=== PATIENT | female | born 1995 | race Caucasian/White ===

== ENCOUNTER 2024-01-25 18:54 | Emergency (ER) | payer OTHER, SELFPAY ==
--- NOTE | ~2024-01-25 | XR_ITS ---
XR chest 1V portable DATE: 01/25/2024 19:43 INDICATION: Postoperative fever TECHNIQUE: Portable AP chest on 01/25/2024 at 1939 hours COMPARISON: None FINDINGS: Normal heart size. There is minimal atelectasis at the lung bases. Otherwise no pulmonary consolidation, pulmonary vasc ular congestion or pleural effusion or pneumothorax. IMPRESSION: Minimal atelectasis at the lung bases Reviewed, dictated and finalized at [facility].
--- NOTE | ~2024-01-25 | CT_ITS ---
EXAMINATION: CT abdomen pelvis w con DATE: 01/25/2024 20:49 INDICATION: Fever 2 days postoperative from robotic umbilical hernia repair TECHNIQUE: Computed tomography (CT) of the abdomen and pelvis was performed with 100 CC Omnipaque 350 intravenous contrast. Automated exposure control and iterative reconstruction technique were employe d. Exam dose: 365.63 mGy-cm total exam DLP. COMPARISON: 01/25/2024 portable AP chest FINDINGS: Prominent discoid atelectasis is noted in both lung bases, involving the lower lobes, likel y due to postoperative splinting. This may be a cause for postoperative fever. There is prominent subcutaneous emphysema of the anterior and anterolateral abdominal wall bilaterall y and subcutaneous emphysema within the abdominal wall musculature bilaterally, in addition to modera te intraperitoneal free air. There is some soft tissue infiltration of the adipose tissue of the anterior abdominal wall, particul sam in the periumbilical area and anterolateral left abdominal wall. There is also soft tissue infil tration of the omental fat. Contracted gallbladder with multiple gallstones. The liver, spleen, pancreas, and adrenal glands are unremarkable. No bile duct or pancreatic duct dil atation. Scattered renal cysts measuring up to 11 mm on the right, 4 mm on the left. No urinary tract calculus or hydroureteronephrosis 2.5 cm peripherally enhancing right corpus luteum ovarian cyst. The uterus and adnexal areas are othe rwise unremarkable. Normal caliber of the abdominal aorta. No intraperitoneal or retroperitoneal or pelvic mass lesion or adenopathy. Conclusion skeletal structures are unremarkable. IMPRESSION: Prominent bilateral lower lobe basilar discoid atelectasis, likely due to splinting from pain. This may be a cause of fever. Cholelithiasis Scattered renal cysts 2.5 cm peripherally enhancing right ovarian corpus and cyst Postoperative changes of the abdominal wall and abdomen, including subcutaneous emphysema and fat str anding, emphysema of the abdominal wall musculature and intraperitoneal free air Reviewed, dictated and finalized at [facility]. Reviewed, dictated and finalized at location [facility]. IMPRESSION: Prominent bilateral lower lobe basilar discoid atelectasis, likely due to splinting from pain. This may be a cause of fever. Cholelithiasis Scattered renal cysts 2.5 cm peripherally enhancing right ovarian corpus and cyst Postoperative changes of the abdominal wall and abdomen, including subcutaneous emphysema and fat stranding, emphysema of the abdominal wall musculature and i ntraperitoneal free air
[2024-01-25 19:10] VITALS: BP 142/90; PULSE 81; RESP 16; TEMP 37; O2SAT 98
[2024-01-25 19:25] VITALS: BP 139/61; PULSE 98; RESP 22; O2SAT 95
--- NOTE | 2024-01-25 19:32 | ECG_ITS ---
SEE SCANNED COPY FOR CONFIRMED REPORT. MTDD
--- NOTE | 2024-01-25 19:34 | ED.GENADULT ---
HPI - General Adult General Chief complaint: Recheck/Abnormal Lab/Rx Stated complaint: post op fever Time Seen by Provider: 01/25/24 19:22 History of Present Illness HPI narrative: This is a 28-year-old female in pod 2 from a robotic umbilical hernia repair performed at [facility] since the surgery the patient has not had a bowel movement. She stopped passing gas. She had 2 episodes of vomiting yesterday. She took a temperature [facility] skin probing had a fever of 102 earlier today. She has been using oxycodone intermittently for pain. She has taken 1 Motrin. Patient denies chest pain difficulty breathing or urinary symptoms. Abdomen is tender Related Data Allergies Allergy/AdvReac Type Severity Reaction Status Date / Time No Known Allergies Allergy Verified 01/25/24 21:06 [facility] Past Medical History Medical History High cholesterol Exam Narrative: APPEARANCE: No apparent distress. Head: atraumatic. EYES: EOMI, NOSE: Atraumatic NECK: Trachea midline RESPIRATORY: No increased rate of breathing, clear to auscultation CARDIOVASCULAR: RRR, ABDOMINAL: several well-healed surgical incisions sites with minimal bruising. No cellulitic changes. Abdomen is soft with mild diffuse tenderness. No CVA tenderness MUSCULOSKELETAl: No obvious deformities NEURO: Alert. Moving 4/4 extremities SKIN:: Warm, dry. Normal color PSYCHIATRIC: Normal affect Course Vital Signs Vital signs: Vital Signs Temperature 98.6 F 01/25/24 19:10 Pulse Rate 81 01/25/24 19:10 Respiratory Rate 16 01/25/24 19:10 Blood Pressure 142/90 H 01/25/24 19:10 Pulse Oximetry 98 01/25/24 19:10 Oxygen Delivery Room Air 01/25/24 19:10 Temperature 98.6 F 01/25/24 19:10 Pulse Rate 81 01/25/24 21:04 Respiratory Rate 17 01/25/24 21:04 Blood Pressure 129/95 H 01/25/24 21:04 Pulse Oximetry 95 01/25/24 21:04 Oxygen Delivery Room Air 01/25/24 19:25 Medical Decision Making MDM Narrative Medical decision making narrative: -Course: 20-year-old female presenting on pod 2 robotic umbilical hernia repair. Patient has not had a bowel movement since the surgery. CT showed expected inflammatory changes and air after surgery. Also showed large stool burden. Patient's abdomen is soft. She has reduced bowel sounds but they are present. suspect constipation but resolving ileus is also considered. Rest of her workup was significant for a possible UTI but no other acute findings. Case was discussed with her surgeon Dr. Amanda. At this time no indication for transfer to [place] and he is comfortable seeing her in clinic tomorrow. On re-evaluation patient resting comfortably. Vital signs stable and she has not been febrile our emergency department.She feels better after pain medication. She is able to tolerate p.o.. She will be discharged with instructions their surgeon tomorrow. -DDX includes but is not limited to:Ileus, small-bowel obstruction, intra-abdominal abscesses, pneumonia UTI sepsis -Co-morbidities complicating care:High cholesterol -Social determinants of health: Reenat stacy, occasional etoh/MJ -Independent interpretation of studies: Labs reviewed and within normal limits. UA with 6-10 white blood cells +1 leuk esterase. Lactate normal. Kidney function baseline viral swabs negative. CT abdomen pelvis: Prominent bilateral lower lobe basilar discoid atelectasis, likely due to splinting from pain. This may be a cause of fever. Cholelithiasis Scattered renal cysts 2.5 cm peripherally enhancing right ovarian corpus and cyst Postoperative changes of the abdominal wall and abdomen, including subcutaneous emphysema and fat stranding, emphysema of the abdominal wall musculature and intraperitoneal free air -Discussion of Management/Consultants: Dr. Edmonds -Interventions: 2 L normal saline, 0.5 mg Dilaudid, 15 mg Toradol, methylnaltrexone -S
[2024-01-25] MEDS: SODIUM CHLORIDE 0.9% IV 2,000 ML 999 ML IV CONT (20:02)
[2024-01-25] MEDS: HYDROmorphone HCL INJ (*CRX) 1 MG/ML SYR 0.5 MG IV PUSH (20:03)
[2024-01-25] MEDS: ONDANSETRON INJ 4 MG/2 ML VIAL IV PUSH (20:03)
[2024-01-25] MEDS: KETOROLAC 15 MG/ML VIAL (*BKC) IV PUSH (20:03)
[2024-01-25 20:04] LABS: Basophils Percent Auto 0.4 % (0.2-1.2); Eosinophils Absolute Auto 0.1 K/mm3 (0-0.3); Eosinophils Percent Auto 1.2 % (0-4.4); Hematocrit 40.2 % (37.0-47.0); Hemoglobin 13.4 g/dL (12.0-15.0); Immature Granulocyte Absolute 0.02 K/mm3 (0.00-0.031); Immature Granulocyte Percent A 0.2 % (0-0.5); Lymphocytes Absolute Auto 1.98 K/mm3 (0.9-3.2); Lymphocytes Percent Auto 21.2 % (18.3-44.2); Mean Corpuscular HGB Conc 33.3 g/dl (32-36); Mean Corpuscular Hemoglobin 28.9 pg (26-34); Mean Corpuscular Volume 86.6 fl (80-100); Mean Platelet Volume 9.6 fl (7.4-10.4); Monocytes Absolute Auto 0.7 K/mm3 (0.1-0.6); Monocytes Percent Auto 7.3 % (2.6-8.5); Neutrophils Absolute Auto 6.5 K/mm3 (1.3-6.7); Neutrophils Percent Auto 69.7 % (45.5-73.1); Platelet Count Result 223 k/mm3 (150-375); Red Blood Count 4.64 M/mm3 (4.2-5.4); White Blood Count 9.4 K/mm3 (4.5-10.0)
[2024-01-25 20:16] LABS: Alanine Aminotransferase 24 U/L (6-35); Albumin Level 4.2 g/dL (3.5-5.1); Alkaline Phosphatase 51 U/L (38-126); Anion Gap 6 mmol/L (4-12); Aspartate Amino Transferase 35 U/L (14-36); Blood Urea Nitrogen 9 mg/dL (7-17); Calcium 8.8 mg/dL (8.4-10.2); Carbon Dioxide 25 mmol/L (22-30); Chloride 104 mmol/L (98-107); Estimated Glomerular Filt Rate > 60; Glucose 89 mg/dL (65-110); Lactic Acid Reflex 0.7 mmol/L (0.7-2.0); Lipase 60 U/L (23-300); Potassium 3.4 mmol/L (3.4-5.0); Sodium 135 mmol/L (137-145)
[2024-01-25 20:17] LABS: INR 1.1; Prothrombin Time 14.5 Seconds (11.1-14.7)
[2024-01-25 20:18] LABS: Partial Thromboplastin Time 36.2 Seconds (22.3-36.8)
[2024-01-25 20:35] LABS: Appearance Urine Cloudy (Clear); Bacteria Urine None Seen /hpf; Bilirubin Urine Negative (Negative); Blood Urine Trace (Negative); Color Urine Yellow (Yellow); Glucose Urine UA Negative (Negative); Ketones Urine 2+ mg/dL (Negative); Leukocyte Esterase Ur 1+ LEU/UL (Negative); Nitrate Urine Negative (Negative); Non Pathogenic Casts 0-2; Protein Urine Trace mg/dL (Negative); Specific Grav Ur 1.021 (1.001-1.035); Squamous Epithelial Cell Urine Moderate /hpf (Few); pH Urine 6.5 (5.0-9.0)
[2024-01-25 20:37] LABS: Add Urine Microscopic? YES
[2024-01-25 21:04] VITALS: BP 129/95; PULSE 81; RESP 17; O2SAT 95
[2024-01-25 21:08] LABS: Influenza A QL RT-PCR Negative (Negative); Influenza B QL RT-PCR Negative (Negative); RSV RNA, RT-PCR Negative (Negative); SARS-CoV-2 RNA PCR Negative (Negative)
[2024-01-25] MEDS: METHYLNALTREXONE 12 MG/0.6 ML VIAL SUB-Q (23:15)
[2024-01-25 23:16] VITALS: BP 126/87; PULSE 67; RESP 18; O2SAT 97
== END 2024-01-25 23:18 | disposition home or self-care (01) ==
PROVIDERS: Emergency Provider Emergency Medicine; PCP Internal Medicine
DX: G89.18 Other acute postprocedural pain (principal); K91.89 Other postprocedural complications and disorders of digestive system; K59.09 Other constipation; Z20.822 Contact with and (suspected) exposure to COVID-19; E78.00 Pure hypercholesterolemia, unspecified; R94.31 Abnormal electrocardiogram [ECG] [EKG]; K80.20 Calculus of gallbladder without cholecystitis without obstruction; N28.1 Cyst of kidney, acquired; N83.11 Corpus luteum cyst of right ovary; Y83.8 Other surgical procedures as the cause of abnormal reaction of the patient, or of later complication, without mention of misadventure at the time of the procedure
CPT/HCPCS: 36415; 71045; 74177; 80053; 81001; 81025; 83605; 83690; 85025; 85610; 85730; 87040; 87086; 87637; 93005; 96361; 96372; 96374; 96375; 99284; J1170; J1885; J2212; J2405; J7030; Q9967